=== PATIENT | female | born 1945 | race African-American/Black ===

== ENCOUNTER 2016-12-17 17:17 | Emergency (ER) | payer OTHER ==
[~2016-12-17] VITALS: Ht 157.5 cm; Wt 79.0 kg
[~2016-12-17 17:17] MED LIST: AMLO5 PO; ASPI81TA82 PO; CORE25TA PO; FURO1TAB93 PO; GABA100C4 PO; GLIP5 PO; HYDRA50 PO; KCL20 PO; LANTUSP SQ; LATA.005%O OU; NRSS SQ; PRAV40 PO; PROT40TA PO
[2016-12-17 17:27] VITALS: BP 212/85; PULSE 68; RESP 18; TEMP 98.5; O2SAT 98
[2016-12-17 21:15] VITALS: BP 176/65; PULSE 57; RESP 18; TEMP 98.5; O2SAT 97
== END 2016-12-17 21:45 | disposition left against medical advice (07) ==
LOC: PHED 17:17
DX: I10 Essential (primary) hypertension (principal)
CPT/HCPCS: 99281

== ENCOUNTER → 2017-10-13 | Outpatient (CLI) | payer OTHER ==
--- NOTE | 2017-10-14 10:51 | RSPPFT ---
DATE OF PROCEDURE: 10/13/17 COMMENTS: Spirometry with FVC of 1.6 predicted 2.5, FEV1 of 1.5 predicted 2.0, FEV1/FVC ratio 92% predicted 82%. Lung volumes show a decrease in TLC at 3.3 predicted 4.7. DLCO is 42% of predicted. IMPRESSION: On the basis of the above, patient has a restrictive lung defect .
== END ==
LOC: HRSP 08:45
PROVIDERS: ATTEND Internal Medicine Pulmonary Disease
DX: R05 Cough (principal)
CPT/HCPCS: 94060; 94618; 94726; 94729